=== PATIENT | female | born 1990 | race Caucasian/White ===

== ENCOUNTER 2017-09-16 20:56 | Emergency (ER) | payer OTHER ==
[~2017-09-16] VITALS: Ht 157.5 cm; Wt 51.8 kg
[~2017-09-16 20:56] MED LIST: OXAYDO5 MG PO; PRENATAL TABLE1 EAC3 PO
[2017-09-16] MEDS ORDERED: PEN-VEE K,VEET500 MG PO (22:45)
[2017-09-16 23:02] VITALS: BP 123/74
== END 2017-09-16 23:03 | disposition home or self-care (01) ==
LOC: EME 20:56
DX: J02.0 Streptococcal pharyngitis (principal)
CPT/HCPCS: 87651 90; 99281; 99284